=== PATIENT | male | born 1955 | race Caucasian/White ===

== ENCOUNTER 2017-06-02 08:52 | Emergency (ER) | payer MEDICARE, MEDICAID ==
[~2017-06-02] VITALS: Ht 165.1 cm; Wt 72.5 kg
[2017-06-02] MEDS ORDERED: FAMOTIDINE 20 MG/2 ML ONE (09:13)
[2017-06-02] MEDS ORDERED: ONDANSETRON 2MG/ML, 2ML IVPush ONE (09:30)
[2017-06-02] MEDS ORDERED: FAMOTIDINE 20 MG/2 ML IVP ONE (09:30)
[2017-06-02] MEDS ORDERED: PLEASE ENTER ALLERGIES MC SCH ×2 (09:30)
[2017-06-02] MEDS ORDERED: SODIUM CHLORIDE 0.9% 1,000ML IVBOLUS ONE (09:30)
[2017-06-02 09:31] LABS: HEMATOCRIT 33.8 % (39.2-51.8); HEMOGLOBIN 10.7 g/dL (13.7-18.0); WHITE BLOOD COUNT 8.9 x10^3/uL (3.4-10)
[2017-06-02 09:40] LABS: ASPARTATE AMINO TRANSFERASE 12 U/L (15-37); BLOOD UREA NITROGEN 27 mg/dL (7-18)
[2017-06-02] MEDS ORDERED: SODIUM CHLORIDE FLUSH 10ML SYR IVF ONE (10:00)
[2017-06-02 11:07] VITALS: BP 162/58
== END 2017-06-02 11:09 | disposition home or self-care (01) ==
LOC: ED 09:54
DX: R11.2 Nausea with vomiting, unspecified (principal); R10.9 Unspecified abdominal pain; E11.9 Type 2 diabetes mellitus without complications; Z86.73 Personal history of transient ischemic attack (TIA), and cerebral infarction without residual deficits; I25.2 Old myocardial infarction
CPT/HCPCS: 36415; 74020; 80053; 83690; 85025; 93005; 96361; 96374; 99285; J7030; S0028

== ENCOUNTER 2017-06-05 08:04 | Emergency (ER) | payer MEDICARE, MEDICAID ==
[~2017-06-05] VITALS: Ht 167.6 cm; Wt 73.0 kg
[2017-06-05] MEDS ORDERED: SODIUM CHLORIDE 0.9% 1,000ML IVBOLUS ONE (09:00)
[2017-06-05] MEDS ORDERED: METOCLOPRAMIDE 5 MG/ML, 2ML IVPush ONE (09:00)
[2017-06-05] MEDS ORDERED: SODIUM CHLORIDE FLUSH 10ML SYR IVF ONE (09:00)
[2017-06-05] MEDS ORDERED: DICYCLOMINE 10 MG/ML, 2ML IM ONE (09:00)
[2017-06-05] MEDS ORDERED: METOCLOPRAMIDE 5 MG/ML, 2ML ONE (09:13)
[2017-06-05 09:26] LABS: ASPARTATE AMINO TRANSFERASE 15 U/L (15-37); BLOOD UREA NITROGEN 29 mg/dL (7-18)
[2017-06-05 09:39] LABS: HEMATOCRIT 35.6 % (39.2-51.8); HEMOGLOBIN 11.3 g/dL (13.7-18.0); WHITE BLOOD COUNT 10.5 x10^3/uL (3.4-10)
[2017-06-05] MEDS ORDERED: ONDA4TAB7 PO (10:42)
[2017-06-05] MEDS ORDERED: insulin (10:42)
[2017-06-05] MEDS ORDERED: LISI-167 PO (10:42)
[2017-06-05] MEDS ORDERED: METO10TA82 PO (10:42)
[2017-06-05 10:56] LABS: ANISOCYTOSIS 1+; HYPOCHROMIA 1+; MICROCYTOSIS 1+; OVALOCYTES 1+
[2017-06-05 12:08] VITALS: BP 164/85
== END 2017-06-05 12:11 | disposition home or self-care (01) ==
LOC: ED 08:16
DX: K59.00 Constipation, unspecified (principal); R11.2 Nausea with vomiting, unspecified; E11.43 Type 2 diabetes mellitus with diabetic autonomic (poly)neuropathy; K31.84 Gastroparesis; I25.2 Old myocardial infarction; Z86.73 Personal history of transient ischemic attack (TIA), and cerebral infarction without residual deficits
CPT/HCPCS: 36415; 74020; 80053; 83690; 85025; 93005; 96361; 96372; 96374; 99285; J0500; J2765; J7030